=== PATIENT | female | born 1955 | race Caucasian/White ===

== ENCOUNTER 2016-07-04 13:57 | Outpatient (CLI) | payer OTHER ==
--- NOTE | 2016-07-04 15:28 | DIAGNOSTIC IMAGING REPORT ---
PROCEDURE: US SOFT TISSUE THYR/NECK/HEAD INDICATION: NODULAR GOITER TECHNIQUE: Victoria scale and color Doppler sonographic images of the thyroid gland were obtained. COMPARISON: None. FINDINGS: The right thyroid lobe measures 4.8 x 1.8 x 1.2 cm. The left thyroid lobe measures 3.2 x 0.7 x 1.2 cm. The isthmus measures 2 mm in thickness. The echotexture of the right lobe is heterogeneous secondary to at least to dominant, unencapsulated, irregular areas of spongiform echotexture measuring approximately 16 mm and 18 mm in the upper to mid poles. In the deep midportion of the mid gland, there is a 7 mm curvilinear echogenic shadowing calcification, likely a peripherally calcified nodule. Color Doppler imaging demonstrates increased vascularity throughout the right lobe compared to the contralateral side. The left thyroid lobe demonstrates irregular margins but the overall homogeneous echotexture and diminutive size. No dominant nodule, cyst, or calcification. There is less vascularity within the left lobe compared to the right. Benign lymph nodes are seen in the right neck. A very tiny lymph node is seen in the left lateral compartment. No pathologic adenopathy. IMPRESSION: 1. Heterogeneous, relatively enlarged, hyperemic right thyroid lobe compared to the left. This probably represents residual active thyroiditis. 2. There are two dominant spongiform regions in the right lobe without a discrete solid thyroid nodule. 3. 7 mm peripherally calcified nodule in the deep right lobe incompletely evaluated due to dense shadow. 4. Diminutive, homogeneous left thyroid lobe with irregular margins consistent with inactive/burntout thyroiditis.
== END 2016-07-04 23:00 | disposition home or self-care (01) ==
LOC: US SRH 13:57
DX: E04.9 Nontoxic goiter, unspecified (principal); E07.9 Disorder of thyroid, unspecified